=== PATIENT | female | born 2000 | race African-American/Black ===

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

== ENCOUNTER 2020-12-16 11:24 | Emergency (ER) | payer OTHER ==
[~2020-12-16] VITALS: Ht 165.1 cm; Wt 64.9 kg
== END 2020-12-16 12:49 | disposition home or self-care (01) ==
LOC: ER 11:24
DX: M25.562 Pain in left knee (principal)

== ENCOUNTER 2021-02-21 06:55 | Emergency (ER) | payer OTHER ==
[~2021-02-21] VITALS: Ht 165.1 cm; Wt 64.4 kg
[2021-02-21] MEDS ORDERED: BUTALBIT-ACETA1 EACH PO (12:05)
== END 2021-02-21 12:43 ==
LOC: ER 06:55
DX: G43.919 Migraine, unspecified, intractable, without status migrainosus (principal)

== ENCOUNTER 2021-06-29 03:37 | Emergency (ER) | payer OTHER ==
[~2021-06-29] VITALS: Ht 165.1 cm; Wt 65.8 kg
[~2021-06-29 03:37] MED LIST: BUTALBIT-ACETA1 EACH PO
[2021-06-29] MEDS ORDERED: NAPROXEN500 MG PO (05:46)
[2021-06-29] MEDS ORDERED: BENADRYL25 MG PO (05:46)
== END 2021-06-29 05:56 | disposition home or self-care (01) ==
LOC: ER 03:37
DX: G43.909 Migraine, unspecified, not intractable, without status migrainosus (principal)

== ENCOUNTER 2021-12-17 05:05 | Emergency (ER) | payer OTHER ==
[~2021-12-17] VITALS: Ht 165.1 cm; Wt 64.0 kg
[~2021-12-17 05:05] MED LIST changes: +ACETAMINOPHEN650 M2; +BENADRYL25 MG PO; +NAPROXEN500 MG PO
== END 2021-12-17 11:26 | disposition home or self-care (01) ==
LOC: ER 05:05
DX: K52.9 Noninfective gastroenteritis and colitis, unspecified (principal); R11.2 Nausea with vomiting, unspecified; Z20.822 Contact with and (suspected) exposure to COVID-19

== ENCOUNTER 2022-06-22 08:24 | Emergency (ER) | payer OTHER ==
[~2022-06-22] VITALS: Ht 167.6 cm; Wt 65.8 kg
[2022-06-22] MEDS ORDERED: PEPCID AC20 MG PO (13:04)
[2022-06-22] MEDS ORDERED: INTESTINEX680 M1 PO (13:04)
== END 2022-06-22 13:31 | disposition home or self-care (01) ==
LOC: ER 08:24
DX: R10.13 Epigastric pain (principal); R11.10 Vomiting, unspecified; Z88.2 Allergy status to sulfonamides; Z20.822 Contact with and (suspected) exposure to COVID-19

== ENCOUNTER 2023-06-01 09:34 | Emergency (ER) | payer OTHER ==
[~2023-06-01] VITALS: Ht 165.1 cm; Wt 65.3 kg
[~2023-06-01 09:34] MED LIST changes: +INTESTINEX680 M1 PO; +PEPCID AC20 MG PO
== END 2023-06-01 12:45 | disposition home or self-care (01) ==
LOC: ER 09:34
DX: J06.9 Acute upper respiratory infection, unspecified (principal); Z88.2 Allergy status to sulfonamides

== ENCOUNTER 2024-11-21 11:55 | Emergency (ER) | payer OTHER ==
[~2024-11-21] VITALS: Ht 167.6 cm; Wt 70.8 kg
[2024-11-21] MEDS ORDERED: 0.9 % SODIUM CHLORIDE 1,000 ML IV STA (12:50)
[2024-11-21] MEDS ORDERED: ONDANSETRON HCL 2 MG/ML VIAL IV STA (12:51)
[2024-11-21] MEDS ORDERED: ONDANSETRON HCL 2 MG/ML VIAL ONE (13:09)
[2024-11-21 14:10] LABS: HEMATOCRIT 39.2 % (36.0-45.00); HEMOGLOBIN 13.8 g/dL (12.0-15.00); MEAN CELL VOLUME 85.8 fL (80.00-100.00); MEAN CORPUSCULAR HEMOGLOBIN 30.3 pg (27.00-32.0); MEAN CORPUSCULAR HGB CONC 35.3 g/dl (32.0-36.0); PLATELET COUNT 276 K/uL (150-450); RED BLOOD COUNT 4.56 M/uL (4.00-6.00); RED CELL DISTRIBUTION WIDTH 13.8 % (11.5-14.5)
[2024-11-21 14:26] LABS: URINE BACTERIA 554.3 uL (0.0-1933); URINE WBC 9.3 uL (0.0-23.2)
[2024-11-21 14:30] LABS: PH,URINE 6.5 (5.0-8.0); URINE APPEARANCE Clear; URINE BILIRRUBIN Negative (NEGATIVE); URINE BLOOD Negative; URINE COLOR Yellow; URINE GLUCOSE Negative (NEGATIVE); URINE KETONE Negative (NEGATIVE); URINE LEUKOCYTE Negative; URINE NITRATE Negative; URINE PROTEIN Negative (NEGATIVE); URINE UROBILINOGEN 0.2 E.U./dl
[2024-11-21 14:54] LABS: CALCIUM 9.3 mg/dL (8.5-10.1); CREATININE SERUM 0.75 mg/dL (0.55-1.02); GFR 94.94; POTASSIUM 3.83 mEq/L (3.5-5.1)
== END 2024-11-21 16:13 | disposition home or self-care (01) ==
LOC: ER 11:56
PROVIDERS: Emergency Medicine
DX: O99.891 Other specified diseases and conditions complicating pregnancy (principal); R11.10 Vomiting, unspecified; Z3A.01 Less than 8 weeks gestation of pregnancy; Z88.2 Allergy status to sulfonamides; R10.13 Epigastric pain

== ENCOUNTER 2025-07-09 01:28 | Inpatient (IN) | payer OTHER ==
[~2025-07-09] VITALS: Ht 165.1 cm; Wt 85.7 kg
[2025-07-09 00:57] VITALS: BP 117/74
[2025-07-09] MEDS ORDERED: PRENATA CHEWAB1 EACH PO (01:43)
[2025-07-09] MEDS ORDERED: RINGERS SOLUTION,LACTATED 1,000 ML IV SCH (01:45)
[2025-07-09 02:03] LABS: BASO % 0.3 % (0.1-1.2); EOS # 0.11 (0.04-0.54); EOS % 1.2 % (0.7-7.0); LYMPH # 1.09 (1.18-3.74); LYMPH % 11.6 % (19.3-53.1); MEAN PLATELET VOLUME 10.40 fl (9.4-12.4); MONO # 0.59 (0.24-0.82); MONO % 6.3 % (4.7-12.5); NEUT # 7.53 (1.56-6.13); NEUT % 79.9 % (34.0-71.1); RED CELL DISTRIBUTION WIDTH 12.8 % (11.6-14.4); URINE APPEARANCE Clear; URINE BILIRRUBIN Negative (NEGATIVE); URINE BLOOD Small; URINE COLOR Yellow; URINE GLUCOSE Negative (NEGATIVE); URINE KETONE Negative (NEGATIVE); URINE LEUKOCYTE Negative; URINE NITRATE Negative; URINE PROTEIN Negative (NEGATIVE); URINE UROBILINOGEN 0.2 E.U./dl
[2025-07-09 02:07] LABS: URINE BACTERIA 832.8 uL (0.0-1933); URINE CAST 0.42 uL (0.0-1.40); URINE EPITHELIAL CELLS 9.6 uL (0.0-38.8); URINE RBC 0.4 uL (0.0-20.8); URINE WBC 17.9 uL (0.0-23.2)
[2025-07-09 02:26] LABS: ALT/SGPT 32.0 U/L (12-78); AST/SGOT 26.0 U/L (15-37); BILIRUBIN TOTAL 0.32 mg/dL (0.3-1.2); BUN CREA RATIO 14.0 (7.0-25.0); CREATININE SERUM 0.69 mg/dL (0.55-1.02); GFR 103.66; GLOBULINA 3.8 G/DL (2.4-3.5); GLUCOSE FASTING 124.0 mg/dL (65-100); OSMOLALITY SERUM 282.0 MOSM/KG (275-295)
[2025-07-09] MEDS ORDERED: AMPICILLIN SODIUM 2,000 MG VIAL IV SCH (02:45)
[2025-07-09 04:22] VITALS: BP 121/82
[2025-07-09 07:14] VITALS: BP 115/72
[2025-07-09] MEDS ORDERED: OXYTOCIN 500 ML IV SCH (11:00)
[2025-07-09 12:58] VITALS: BP 119/89
[2025-07-09] MEDS ORDERED: MORPHINE SULFATE 4 MG/ML CARTRIDGE IV ONE (13:00)
[2025-07-09] MEDS ORDERED: CEFOXITIN SODIUM 2,000 MG VIAL IV SCH (15:15)
[2025-07-09 15:19] VITALS: BP 115/73
[2025-07-09] MEDS ORDERED: ONDANSETRON HCL 2 MG/ML VIAL IV PRN (16:45)
[2025-07-09] MEDS ORDERED: OXYTOCIN 1,000 ML IV SCH (16:45)
[2025-07-09] MEDS ORDERED: MORPHINE SULFATE 4 MG/ML CARTRIDGE IV PRN (16:45)
[2025-07-09] MEDS ORDERED: METHYLERGONOVINE MALEATE 0.2 MG/ML AMPUL IM SCH (17:00)
[2025-07-09] MEDS ORDERED: OXYTOCIN 10 UNITS/ML VIAL IV ONE (18:00)
[2025-07-09] MEDS ORDERED: ERYTHROMYCIN BASE OPHT 1GM EACH TUBE OP ONE (18:00)
[2025-07-09] MEDS ORDERED: METHYLERGONOVINE MALEATE 0.2 MG/ML AMPUL IM ONE (18:30)
[2025-07-09] MEDS ORDERED: ONDANSETRON HCL 2 MG/ML VIAL ONE (18:51)
[2025-07-09 21:36] VITALS: BP 119/78
[2025-07-09 23:56] LABS: BASO % 0.2 % (0.1-1.2); EOS # 0.00 (0.04-0.54); EOS % 0.0 % (0.7-7.0); LYMPH # 0.77 (1.18-3.74); LYMPH % 4.4 % (19.3-53.1); MEAN PLATELET VOLUME 10.90 fl (9.4-12.4); MONO # 1.17 (0.24-0.82); MONO % 6.6 % (4.7-12.5); NEUT # 15.63 (1.56-6.13); NEUT % 88.3 % (34.0-71.1); RED CELL DISTRIBUTION WIDTH 13.2 % (11.6-14.4)
[2025-07-10] VITALS: BP 118/82
[2025-07-10 08:00] VITALS: BP 101/68
[2025-07-10] MEDS ORDERED: NAPROXEN 500 MG TABLET PO SCH (09:00)
[2025-07-10] MEDS ORDERED: ACETAMINOPHEN WITH CODEINE 1 UDTAB TABLET PO SCH (09:06)
[2025-07-10 13:03] VITALS: BP 95/62
[2025-07-10 16:02] VITALS: BP 100/66
[2025-07-11] VITALS: BP 95/65
[2025-07-11 08:47] VITALS: BP 108/69
[2025-07-11 16:55] VITALS: BP 101/69
[2025-07-12] VITALS: BP 104/69
[2025-07-12 08:00] VITALS: BP 114/76
[2025-07-12] MEDS ORDERED: NAPROXEN500 MG PO (09:13)
[2025-07-12] MEDS ORDERED: COLACE100 MG PO (09:14)
== END 2025-07-12 12:53 | disposition home or self-care (01) | DRG 788 ==
LOC: OBS/DEL 01:28 → LDR 10:57 → OB/GYN 10:57
PROVIDERS: ADMIT Obstetrics & Gynecology; ATTEND Obstetrics & Gynecology
PROC: 4A1HXCZ Monitoring of Products of Conception, Cardiac Rate, External Approach (ICD-10-PCS; 2025-07-09)
PROC: 10D00Z1 Extraction of Products of Conception, Low, Open Approach (ICD-10-PCS; principal; 2025-07-09 17:00)
DX: O82 Encounter for cesarean delivery without indication (principal); O62.1 Secondary uterine inertia; Z3A.38 38 weeks gestation of pregnancy; Z37.0 Single live birth